=== PATIENT | female | born 1985 | race Caucasian/White ===

== ENCOUNTER 2020-07-13 02:25 | Inpatient (IN) ==
[2020-07-13] MEDS ORDERED: Ondansetron 4 MG/2 ML VIAL IVP PRN (06:17)
[2020-07-13] MEDS ORDERED: Naloxone 0.4 MG/ML INJ IVP PRN (06:17)
[2020-07-13] MEDS ORDERED: Dextrose Gel 15 GM/37.5 ML TUBE PO PRN ×2 (07:27)
[2020-07-13] MEDS ORDERED: *HR* Dextrose 50 % in Water (Vial) 50 ML VIAL IVP PRN (07:27)
[2020-07-13] MEDS ORDERED: D5% in Water 1,000 ML IVC PRN (07:27)
[2020-07-13 07:35] LABS: Basophils % 0.2 %; Eosinophils % 0.1 %; Hemoglobin 14.3 g/dL (11.5-15.4); Immature Granulocytes % 0.7 % (0-4); Lymphocytes # 1.7 K/mcL (0.6-4.6); Lymphocytes % 14.6 %; Mean Corpuscular HGB Conc 29.2 g/dL (31.6-35.5); Mean Corpuscular Volume 92.5 fL (83.0-100.0); Mean Platelet Volume 10.4 fL (9.4-12.4); Monocytes # 0.8 K/mcL (0.0-1.3); Monocytes % 6.8 %; Neutrophils # 8.8 K/mcL (1.6-8.9); Platelet Count 252 K/mcL (140-400); Red Cell Distribution Width 14.5 % (11.5-14.5); Segmented Neutrophils % 77.6 %; White Blood Count 11.3 K/mcL (4.3-11.1)
[2020-07-13 07:37] LABS: INR 1.1; Prothrombin Time 13.2 Seconds (9.4-12.1)
[2020-07-13] MEDS ORDERED: Ipratropium/Albuterol Neb 3 ML ONE (07:44)
[2020-07-13 07:54] LABS: Alanine Aminotransferase 88 Units/L (7-52); Albumin 3.8 g/dL (3.5-5.7); Albumin/Globulin Ratio 1.2 (1.1-2.2); Alkaline Phosphatase 127 Units/L (34-104); Aspartate Amino Transferase 35 Units/L (13-39); BUN/Creatinine Ratio 24 (6-26); Bilirubin,Total 0.4 mg/dL (0.3-1.0); Blood Urea Nitrogen 12 mg/dL (6-20); Calcium 9.5 mg/dL (8.6-10.3); Carbon Dioxide 38 mEq/L (23-29); Chloride 96 mEq/L (98-107); Globulin 3.2 g/dL (2.4-3.5); Glucose 221 mg/dL (70-105); Lactate Dehydrogenase 180 Units/L (140-271); Osmolality,Calculated 295 (280-300); Potassium 4.1 mEq/L (3.5-5.1); Sodium 139 mEq/L (136-145); eGFR For African Americans > 60 (> 60); eGFR For Non-African Americans > 60 (> 60)
[2020-07-13] MEDS: Ipratropium/Albuterol Neb 3 ML IH SCH ×5 (07:56→22:55)
[2020-07-13 08:01] LABS: Troponin I < 0.03 ng/mL (< 0.04)
[2020-07-13 08:19] LABS: Ferritin 50 ng/mL (10-120)
[2020-07-13] MEDS: Insulin LISPRO 300 UNITS/3 ML VIAL SQ SCH ×3 (08:59→17:23)
[2020-07-13] MEDS: levoFLOXacin 750 MG/150 ML 750 MG/150 ML BAG IVPB SCH (09:00)
[2020-07-13] MEDS: Insulin DETEMIR 100 UNIT/ML X5UNITS SQ SCH ×2 (13:17→20:51)
[2020-07-13] MEDS: Ketorolac 15 MG/ML VIAL IVP PRN ×2 (13:20→19:19)
[2020-07-13] MEDS: traZODone 50 MG TABLET PO SCH (20:50)
[2020-07-13] MEDS: *HR* Rivaroxaban 10 MG TABLET PO SCH (20:50)
[2020-07-13] MEDS: Latanoprost 2.5 ML BOTTLE BOTH EYES SCH (20:57)
[2020-07-13] MEDS: OXcarbazepine 150 MG TABLET PO SCH (22:35)
[2020-07-14] MEDS: Ipratropium/Albuterol Neb 3 ML IH SCH ×6 (03:51→23:38)
[2020-07-14] MEDS: Ketorolac 15 MG/ML VIAL IVP PRN ×3 (06:13→20:45)
[2020-07-14] MEDS ORDERED: Insulin DETEMIR 100 UNIT/ML X5UNITS SQ SCH (09:00)
[2020-07-14] MEDS: Insulin LISPRO 300 UNITS/3 ML VIAL SQ SCH ×6 (09:36→17:52)
[2020-07-14] MEDS: Insulin DETEMIR 100 UNIT/ML X5UNITS SQ SCH ×2 (09:43→21:17)
[2020-07-14] MEDS: Loratadine 10 MG TABLET PO SCH (09:44)
[2020-07-14] MEDS: Gabapentin 100 MG CAPSULE PO SCH (09:44)
[2020-07-14] MEDS: levoFLOXacin 750 MG/150 ML 750 MG/150 ML BAG IVPB SCH (09:44)
[2020-07-14] MEDS: Cholecalciferol (D-3) 1,000 UNIT (25MCG) TABLET PO SCH (09:44)
[2020-07-14] MEDS: OXcarbazepine 150 MG TABLET PO SCH ×2 (09:44→20:45)
[2020-07-14 13:42] LABS: Immature Granulocytes % 0.7 % (0-4)
[2020-07-14 13:43] LABS: Basophils # 0.1 K/mcL (0.0-0.2); Basophils % 0.5 %; Eosinophils # 0.2 K/mcL (0.0-0.6); Eosinophils % 1.7 %; Hemoglobin 13.3 g/dL (11.5-15.4); Lymphocytes # 1.5 K/mcL (0.6-4.6); Mean Corpuscular HGB Conc 27.1 g/dL (31.6-35.5); Mean Corpuscular Hemoglobin 26.1 pg (28.0-33.3); Mean Corpuscular Volume 96.3 fL (83.0-100.0); Mean Platelet Volume 10.7 fL (9.4-12.4); Monocytes # 1.1 K/mcL (0.0-1.3); Monocytes % 8.8 %; Platelet Count 258 K/mcL (140-400); Red Blood Count 5.09 M/mcL (3.82-4.97); Red Cell Distribution Width 14.8 % (11.5-14.5); Segmented Neutrophils % 76.3 %; White Blood Count 12.1 K/mcL (4.3-11.1)
[2020-07-14 13:52] LABS: Neutrophils # 9.2 K/mcL (1.6-8.9)
[2020-07-14 14:23] LABS: BUN/Creatinine Ratio 25 (6-26); Blood Urea Nitrogen 16 mg/dL (6-20); Calcium 9.1 mg/dL (8.6-10.3); Carbon Dioxide 41 mEq/L (23-29); Chloride 96 mEq/L (98-107); Glucose 449 mg/dL (70-105); Magnesium 1.7 mg/dL (1.6-2.6); Osmolality,Calculated 311 (280-300); Phosphorous 4.3 mg/dL (2.7-4.5); Potassium 4.5 mEq/L (3.5-5.1); Sodium 140 mEq/L (136-145); Troponin I < 0.03 ng/mL (< 0.04); eGFR For African Americans > 60 (> 60); eGFR For Non-African Americans > 60 (> 60)
[2020-07-14 15:56] LABS: Estimated Average Glucose 315 mg/dl
[2020-07-14 16:07] LABS: Hypochromasia Present (Not Present)
[2020-07-14] MEDS ORDERED: Perflutren Lipid Microsphere 1.3 ML in 0.9 % Sodium Chloride 8.7 ML IVP PRN (17:36)
[2020-07-14] MEDS: MethylPREDNISolone 40 MG/ML VIAL IVP SCH (17:53)
[2020-07-14] MEDS: Albuterol 2.5 MG/3 ML NEBULIZER IH SCH ×2 (19:59→23:38)
[2020-07-14] MEDS: traZODone 50 MG TABLET PO SCH (20:45)
[2020-07-14] MEDS: hydrOXYzine pamoate 25 MG CAPSULE PO PRN (20:45)
[2020-07-14] MEDS: *HR* Rivaroxaban 10 MG TABLET PO SCH (20:45)
[2020-07-14] MEDS: Latanoprost 2.5 ML BOTTLE BOTH EYES SCH (20:50)
[2020-07-15 01:04] LABS: Hematocrit 50.3 % (35.3-44.9); Hemoglobin 14.2 g/dL (11.5-15.4); Mean Corpuscular HGB Conc 28.2 g/dL (31.6-35.5); Mean Corpuscular Hemoglobin 26.2 pg (28.0-33.3); Mean Corpuscular Volume 92.8 fL (83.0-100.0); Mean Platelet Volume 11.1 fL (9.4-12.4); Platelet Count 253 K/mcL (140-400); Red Blood Count 5.42 M/mcL (3.82-4.97); Red Cell Distribution Width 14.5 % (11.5-14.5); White Blood Count 9.7 K/mcL (4.3-11.1)
[2020-07-15] MEDS: Ipratropium/Albuterol Neb 3 ML IH SCH ×5 (03:30→22:08)
[2020-07-15] MEDS: Albuterol 2.5 MG/3 ML NEBULIZER IH SCH ×5 (03:30→22:07)
[2020-07-15] MEDS: Ketorolac 15 MG/ML VIAL IVP PRN ×4 (03:56→23:48)
[2020-07-15] MEDS: hydrOXYzine pamoate 25 MG CAPSULE PO PRN ×2 (03:57→22:09)
[2020-07-15 06:39] LABS: ABG Base Excess 14 mEq/L (-2 to 3); ABG HCO3 47 mEq/L (21-27); ABG Oxygen Saturation 84 % (95-98); ABG PCO2 106 mmHg (35-45); ABG PH 7.26 pH Units (7.32-7.45); ABG PO2 60 mmHg (85-104); ABG TCO2 > 50 mEq/L (20-26)
[2020-07-15] MEDS: OXcarbazepine 150 MG TABLET PO SCH ×2 (08:17→22:11)
[2020-07-15] MEDS: Gabapentin 100 MG CAPSULE PO SCH (08:17)
[2020-07-15] MEDS: Loratadine 10 MG TABLET PO SCH (08:18)
[2020-07-15] MEDS: Insulin DETEMIR 100 UNIT/ML X5UNITS SQ SCH ×2 (08:18→23:28)
[2020-07-15] MEDS: Cholecalciferol (D-3) 1,000 UNIT (25MCG) TABLET PO SCH (08:18)
[2020-07-15] MEDS: Insulin LISPRO 300 UNITS/3 ML VIAL SQ SCH ×6 (08:18→16:39)
[2020-07-15] MEDS ORDERED: Insulin Human Regular 10 UNIT in 0.9 % Sodium Chloride 10 ML IV ONE (08:20)
[2020-07-15] MEDS: Furosemide 40 MG/4 ML VIAL IVP SCH ×2 (10:32→22:11)
[2020-07-15] MEDS: MethylPREDNISolone 40 MG/ML VIAL IVP SCH ×2 (10:33→18:17)
[2020-07-15] MEDS: levoFLOXacin 750 MG/150 ML 750 MG/150 ML BAG IVPB SCH (10:34)
[2020-07-15 11:36] LABS: BUN/Creatinine Ratio 25 (6-26); Blood Urea Nitrogen 14 mg/dL (6-20); Calcium 8.7 mg/dL (8.6-10.3); Carbon Dioxide 45 mEq/L (23-29); Chloride 96 mEq/L (98-107); Glucose 241 mg/dL (70-105); Osmolality,Calculated 304 (280-300); Sodium 143 mEq/L (136-145); eGFR For African Americans > 60 (> 60); eGFR For Non-African Americans > 60 (> 60)
[2020-07-15] MEDS: traZODone 50 MG TABLET PO SCH (22:10)
[2020-07-15] MEDS: *HR* Rivaroxaban 10 MG TABLET PO SCH (22:10)
[2020-07-15] MEDS: Latanoprost 2.5 ML BOTTLE BOTH EYES SCH (22:12)
[2020-07-15] MEDS: Melatonin 3 MG TABLET PO PRN (23:49)
[2020-07-16] MEDS: Ipratropium/Albuterol Neb 3 ML IH SCH ×6 (00:47→19:59)
[2020-07-16] MEDS: Albuterol 2.5 MG/3 ML NEBULIZER IH SCH ×6 (00:49→19:57)
[2020-07-16] MEDS: MethylPREDNISolone 40 MG/ML VIAL IVP SCH (06:02)
[2020-07-16 06:17] LABS: Hematocrit 49.1 % (35.3-44.9); Hemoglobin 14.4 g/dL (11.5-15.4); Mean Corpuscular HGB Conc 29.3 g/dL (31.6-35.5); Mean Corpuscular Hemoglobin 27.1 pg (28.0-33.3); Mean Corpuscular Volume 92.3 fL (83.0-100.0); Mean Platelet Volume 10.6 fL (9.4-12.4); Platelet Count 294 K/mcL (140-400); Red Blood Count 5.32 M/mcL (3.82-4.97); Red Cell Distribution Width 14.4 % (11.5-14.5); White Blood Count 11.7 K/mcL (4.3-11.1)
[2020-07-16 06:43] LABS: BUN/Creatinine Ratio 33 (6-26); Blood Urea Nitrogen 20 mg/dL (6-20); Calcium 9.5 mg/dL (8.6-10.3); Carbon Dioxide > 45 mEq/L (23-29); Chloride 91 mEq/L (98-107); Glucose 292 mg/dL (70-105); Magnesium 1.9 mg/dL (1.6-2.6); Osmolality,Calculated 305 (280-300); Phosphorous 4.9 mg/dL (2.7-4.5); Potassium 3.8 mEq/L (3.5-5.1); Sodium 141 mEq/L (136-145); eGFR For African Americans > 60 (> 60); eGFR For Non-African Americans > 60 (> 60)
[2020-07-16] MEDS ORDERED: Acetaminophen IV 1,000 MG/100 ML INFUS..BTL IVPB ONE (08:06)
[2020-07-16] MEDS: Furosemide 40 MG/4 ML VIAL IVP SCH ×2 (08:31→20:15)
[2020-07-16] MEDS: OXcarbazepine 150 MG TABLET PO SCH ×2 (08:32→20:18)
[2020-07-16] MEDS: Nicotine 14 MG PATCH.TD24 TD SCH (08:32)
[2020-07-16] MEDS: Cholecalciferol (D-3) 1,000 UNIT (25MCG) TABLET PO SCH (08:32)
[2020-07-16] MEDS: Loratadine 10 MG TABLET PO SCH (08:32)
[2020-07-16] MEDS: Gabapentin 100 MG CAPSULE PO SCH (08:32)
[2020-07-16] MEDS: Insulin DETEMIR 100 UNIT/ML X5UNITS SQ SCH ×2 (08:33→20:18)
[2020-07-16] MEDS: levoFLOXacin 750 MG/150 ML 750 MG/150 ML BAG IVPB SCH (08:33)
[2020-07-16] MEDS: Insulin LISPRO 300 UNITS/3 ML VIAL SQ SCH ×6 (08:34→16:52)
[2020-07-16 12:33] LABS: Bilirubin,Urine Negative (Negative); Blood,Urine Negative (Negative); Clarity,Urine Clear (Clear); Color,Urine Light-Yellow (Yellow); Glucose,Urine (UA) 500 mg/dL (Normal); Ketones,Urine Negative (Negative); Leukocyte Esterase,Urine Negative (Negative); Mucus,Urine Few per lpf (None-Few); Nitrite,Urine Negative (Negative); Protein,Urine Negative (Neg-Trace); RBC,Urine 0-3 per hpf (0-3); Specific Gravity,Urine 1.016 (1.010-1.025); Squamous Epithelial Cell,Urine Few per hpf (None-Few); Urobilinogen,Urine Normal (Normal); WBC,Urine 0-3 per hpf (0-3)
[2020-07-16] MEDS: Ketorolac 15 MG/ML VIAL IVP PRN (20:16)
[2020-07-16] MEDS: Melatonin 3 MG TABLET PO PRN (20:17)
[2020-07-16] MEDS: traZODone 50 MG TABLET PO SCH (20:17)
[2020-07-16] MEDS: hydrOXYzine pamoate 25 MG CAPSULE PO PRN (20:17)
[2020-07-16] MEDS: *HR* Rivaroxaban 10 MG TABLET PO SCH (20:17)
[2020-07-16] MEDS: Latanoprost 2.5 ML BOTTLE BOTH EYES SCH (20:19)
[2020-07-17] MEDS: Ipratropium/Albuterol Neb 3 ML IH SCH ×5 (00:08→16:39)
[2020-07-17] MEDS: Albuterol 2.5 MG/3 ML NEBULIZER IH SCH ×5 (00:09→16:59)
[2020-07-17] MEDS: Ketorolac 15 MG/ML VIAL IVP PRN (03:32)
[2020-07-17 06:23] LABS: Basophils % 0.5 %; Hemoglobin 13.9 g/dL (11.5-15.4)
[2020-07-17 06:25] LABS: Basophils # 0.1 K/mcL (0.0-0.2); Eosinophils # 0.2 K/mcL (0.0-0.6); Eosinophils % 2.2 %; Hematocrit 48.2 % (35.3-44.9); Immature Granulocytes % 0.9 % (0-4); Lymphocytes % 29.1 %; Mean Corpuscular HGB Conc 28.8 g/dL (31.6-35.5); Mean Corpuscular Hemoglobin 26.8 pg (28.0-33.3); Mean Corpuscular Volume 93.1 fL (83.0-100.0); Mean Platelet Volume 10.5 fL (9.4-12.4); Monocytes # 0.9 K/mcL (0.0-1.3); Monocytes % 9.2 %; Neutrophils # 5.9 K/mcL (1.6-8.9); Platelet Count 270 K/mcL (140-400); Red Blood Count 5.18 M/mcL (3.82-4.97); Red Cell Distribution Width 14.6 % (11.5-14.5); Segmented Neutrophils % 58.1 %; White Blood Count 10.2 K/mcL (4.3-11.1)
[2020-07-17 06:26] LABS: VBG HCO3 45 mEq/L (21-27); VBG PCO2 96 mmHg (41-51); VBG PH 7.28 pH Units (7.32-7.42); VBG PO2 152 mmHg (25-50)
[2020-07-17 06:58] LABS: Hypochromasia Present (Not Present); Platelet Estimate Normal (Normal)
[2020-07-17] MEDS: Insulin DETEMIR 100 UNIT/ML X5UNITS SQ SCH (08:26)
[2020-07-17] MEDS: Furosemide 40 MG/4 ML VIAL IVP SCH (08:27)
[2020-07-17] MEDS: Insulin LISPRO 300 UNITS/3 ML VIAL SQ SCH ×6 (08:27→16:57)
[2020-07-17] MEDS: Gabapentin 100 MG CAPSULE PO SCH (08:28)
[2020-07-17] MEDS: OXcarbazepine 150 MG TABLET PO SCH (08:28)
[2020-07-17] MEDS: Loratadine 10 MG TABLET PO SCH (08:28)
[2020-07-17] MEDS: Cholecalciferol (D-3) 1,000 UNIT (25MCG) TABLET PO SCH (08:28)
[2020-07-17] MEDS: Nicotine 14 MG PATCH.TD24 TD SCH (08:29)
[2020-07-17] MEDS: levoFLOXacin 750 MG/150 ML 750 MG/150 ML BAG IVPB SCH (08:36)
[2020-07-17 08:55] LABS: Alanine Aminotransferase 80 Units/L (7-52); Albumin 3.3 g/dL (3.5-5.7); Albumin/Globulin Ratio 1.3 (1.1-2.2); Alkaline Phosphatase 130 Units/L (34-104); Aspartate Amino Transferase 18 Units/L (13-39); BUN/Creatinine Ratio 40 (6-26); Bilirubin,Indirect 0.4 mg/dL (0.0-1.0); Bilirubin,Total 0.4 mg/dL (0.3-1.0); Blood Urea Nitrogen 26 mg/dL (6-20); Calcium 8.9 mg/dL (8.6-10.3); Carbon Dioxide 45 mEq/L (23-29); Chloride 94 mEq/L (98-107); Globulin 2.6 g/dL (2.4-3.5); Glucose 251 mg/dL (70-105); Magnesium 1.8 mg/dL (1.6-2.6); Osmolality,Calculated 305 (280-300); Potassium 3.9 mEq/L (3.5-5.1); Sodium 141 mEq/L (136-145); Thyroid Stimulating Hormone 0.949 mcIU/mL (0.340-5.600); Total Protein 5.9 g/dL (6.4-8.9); eGFR For African Americans > 60 (> 60); eGFR For Non-African Americans > 60 (> 60)
[2020-07-17 15:52] VITALS: BP 128/80
[2020-07-17 16:08] LABS: VBG HCO3 43 mEq/L (21-27); VBG PCO2 79 mmHg (41-51); VBG PH 7.34 pH Units (7.32-7.42); VBG PO2 74 mmHg (25-50)
[2020-07-18] MEDS ORDERED: levoFLOXacin 750 MG TABLET PO SCH (09:00)
== END 2020-07-17 17:55 | disposition left against medical advice (07) | DRG 141 ==
LOC: 2NNU → SUATTDRO 05:48 → 3ANU 07-16 12:57
PROVIDERS: ADMIT Family Medicine; ATTEND Pharmacist

== ENCOUNTER 2021-05-29 05:09 | Inpatient (IN) ==
[2021-05-29] MEDS ORDERED: Naloxone 0.4 MG/ML INJ IVP PRN (10:32)
[2021-05-29] MEDS ORDERED: Ondansetron 4 MG/2 ML VIAL IVP PRN (10:32)
[2021-05-29] MEDS ORDERED: Dextrose Gel 15 GM/37.5 ML TUBE PO PRN ×2 (10:34)
[2021-05-29] MEDS ORDERED: D5% in Water 1,000 ML IVC PRN (10:34)
[2021-05-29] MEDS ORDERED: *HR* Dextrose 50 % in Water (Vial) 50 ML VIAL IVP PRN (10:34)
[2021-05-29] MEDS ORDERED: Furosemide 40 MG/4 ML VIAL IVP SCH ×2 (10:45→21:00)
[2021-05-29] MEDS: Insulin LISPRO 300 UNITS/3 ML VIAL SUBQ SCH ×2 (13:01→18:08)
[2021-05-29] MEDS: *HR* OxyCODONE Immed Rel 5 MG TABLET PO PRN ×2 (13:07→21:24)
[2021-05-29] MEDS: Albuterol 2.5 MG/3 ML NEBULIZER IH SCH ×4 (15:05→23:40)
[2021-05-29 15:18] LABS: VBG HCO3 38 mEq/L (21-27); VBG PCO2 79 mmHg (41-51); VBG PH 7.29 pH Units (7.32-7.42); VBG PO2 141 mmHg (25-50)
[2021-05-29] MEDS: Acetaminophen 325 MG TABLET PO PRN (16:22)
[2021-05-29] MEDS ORDERED: polyethylene glycoL 3350 17 GM POWD.PACK PO PRN (17:40)
[2021-05-29] MEDS ORDERED: Haloperidol Lactate 5 MG/ML VIAL IVP ONE (17:50)
[2021-05-29] MEDS: Budesonide/Formoterol 160/4.5 1 PUFF INH IH SCH (19:37)
[2021-05-29] MEDS: Apixaban 5 MG TABLET PO SCH (21:21)
[2021-05-29] MEDS: Nystatin POWDER 30 GM BOTTLE TP SCH (21:21)
[2021-05-29] MEDS: Sucralfate 1 GM TABLET PO SCH (21:21)
[2021-05-29] MEDS: Gabapentin 400 MG CAPSULE PO SCH (21:21)
[2021-05-29] MEDS: Insulin DETEMIR 100 UNIT/ML X5UNITS SUBQ SCH (21:25)
[2021-05-29] MEDS: OXcarbazepine 150 MG TABLET PO SCH (22:40)
[2021-05-30] MEDS: Insulin LISPRO 300 UNITS/3 ML VIAL SUBQ SCH ×4 (00:51→18:43)
[2021-05-30] MEDS: Acetaminophen 325 MG TABLET PO PRN (01:18)
[2021-05-30] MEDS: Dexmedetomidine HCl 400 MCG/100 ML MLS IVC SCH ×9 (02:19→23:43)
[2021-05-30] MEDS: Albuterol 2.5 MG/3 ML NEBULIZER IH SCH ×4 (04:18→12:32)
[2021-05-30 06:55] LABS: Basophils # 0.1 K/mcL (0.0-0.2); Basophils % 0.4 %; Eosinophils # 0.1 K/mcL (0.0-0.6); Eosinophils % 0.5 %; Hematocrit 50.5 % (35.3-44.9); Hemoglobin 14.9 g/dL (11.5-15.4); Immature Granulocytes % 1.2 % (0-4); Lymphocytes % 8.6 %; Mean Corpuscular HGB Conc 29.5 g/dL (31.6-35.5); Mean Corpuscular Hemoglobin 29.1 pg (28.0-33.3); Mean Corpuscular Volume 98.6 fL (83.0-100.0); Mean Platelet Volume 9.9 fL (9.4-12.4); Monocytes # 1.1 K/mcL (0.0-1.3); Monocytes % 9.9 %; Platelet Count 274 K/mcL (140-400); Red Blood Count 5.12 M/mcL (3.82-4.97); Red Cell Distribution Width 14.7 % (11.5-14.5); Segmented Neutrophils % 79.4 %; White Blood Count 11.4 K/mcL (4.3-11.1)
[2021-05-30 07:02] LABS: VBG HCO3 40 mEq/L (21-27); VBG PCO2 77 mmHg (41-51); VBG PH 7.32 pH Units (7.32-7.42); VBG PO2 117 mmHg (25-50)
[2021-05-30 07:14] LABS: BUN/Creatinine Ratio 20 (6-26); Blood Urea Nitrogen 24 mg/dL (6-20); Carbon Dioxide 40 mEq/L (23-29); Chloride 95 mEq/L (98-107); Glucose 151 mg/dL (70-105); Magnesium 2.2 mg/dL (1.6-2.6); Osmolality,Calculated 293 (280-300); Phosphorous 3.8 mg/dL (2.7-4.5); Potassium 5.1 mEq/L (3.5-5.1); Sodium 138 mEq/L (136-145); eGFR For African Americans > 60 (> 60); eGFR For Non-African Americans 52 (> 60)
[2021-05-30] MEDS: Budesonide/Formoterol 160/4.5 1 PUFF INH IH SCH ×2 (07:56→21:10)
[2021-05-30] MEDS: Insulin DETEMIR 100 UNIT/ML X5UNITS SUBQ SCH (08:27)
[2021-05-30] MEDS: Sucralfate 1 GM TABLET PO SCH ×4 (08:46→20:33)
[2021-05-30] MEDS: OXcarbazepine 150 MG TABLET PO SCH ×2 (08:46→20:33)
[2021-05-30] MEDS: Gabapentin 400 MG CAPSULE PO SCH ×3 (08:47→20:33)
[2021-05-30] MEDS: Apixaban 5 MG TABLET PO SCH (08:47)
[2021-05-30] MEDS: Nystatin POWDER 30 GM BOTTLE TP SCH ×2 (08:47→20:35)
[2021-05-30] MEDS ORDERED: Furosemide 40 MG/4 ML VIAL IVP SCH (09:00)
[2021-05-30] MEDS ORDERED: Metoprolol XL (24 HR) Succ 25 MG TAB.ER.24H PO SCH (09:00)
[2021-05-30] MEDS ORDERED: levoFLOXacin 500 MG/100 ML 500 MG/100 ML BAG IVPB SCH (09:00)
[2021-05-30] MEDS ORDERED: Isovue-370 500 ML BOTTLE IVP ONE (09:02)
[2021-05-30 13:04] LABS: Adenovirus Not Detected (Not Detect); Bordetella Pertussis Not Detected (Not Detect); Chlamydophila pneumoniae Not Detected (Not Detect); Coronavirus 229E Not Detected (Not Detect); Coronavirus HKU1 Not Detected (Not Detect); Coronavirus NL63 Not Detected (Not Detect); Coronavirus OC43 Not Detected (Not Detect); Human Metapneumovirus Not Detected (Not Detect); Human Rhinovirus/Enterovirus DETECTED (Not Detect); Influenza A Subtype 2009 H1 Not Detected (Not Detect); Influenza B Not Detected (Not Detect); Mycoplasma pneumoniae Not Detected (Not Detect); Parainfluenza Virus 1 Not Detected (Not Detect); Parainfluenza Virus 2 Not Detected (Not Detect); Parainfluenza Virus 3 Not Detected (Not Detect); Parainfluenza Virus 4 Not Detected (Not Detect); Respiratory Syncytial Virus Not Detected (Not Detect); SARS-CoV-2 Not Detected (Not Detect)
[2021-05-30] MEDS: *HR* OxyCODONE Immed Rel 5 MG TABLET PO PRN (15:35)
[2021-05-30] MEDS ORDERED: Ipratropium/Albuterol Neb 3 ML IH SCH (16:00)
[2021-05-30] MEDS ORDERED: Haloperidol Lactate 5 MG/ML VIAL IVP ONE ×3 (16:15→16:17)
[2021-05-30] MEDS ORDERED: Naloxone 0.4 MG/ML INJ IVP PRN (19:28)
[2021-05-30] MEDS ORDERED: polyethylene glycoL 3350 17 GM POWD.PACK PO PRN (19:28)
[2021-05-30] MEDS ORDERED: Ondansetron 4 MG/2 ML VIAL IVP PRN (19:28)
[2021-05-30] MEDS ORDERED: *HR* OxyCODONE Immed Rel 5 MG TABLET PO PRN (19:28)
[2021-05-30] MEDS ORDERED: Dextrose Gel 15 GM/37.5 ML TUBE PO PRN ×2 (19:28)
[2021-05-30] MEDS ORDERED: Acetaminophen 325 MG TABLET PO PRN (19:28)
[2021-05-30] MEDS ORDERED: *HR* Dextrose 50 % in Water (Vial) 50 ML VIAL IVP PRN (19:28)
[2021-05-30] MEDS ORDERED: D5% in Water 1,000 ML IVC PRN (19:28)
[2021-05-30 20:09] LABS: ABG Base Excess 9 mEq/L (-2 to 3); ABG HCO3 42 mEq/L (21-27); ABG Oxygen Saturation 92 % (95-98); ABG PCO2 97 mmHg (35-45); ABG PH 7.25 pH Units (7.32-7.45); ABG PO2 78 mmHg (85-104); ABG TCO2 45 mEq/L (20-26); Blood Gas Modality avaps; Blood Gas VT 500 cc
[2021-05-30] MEDS ORDERED: Apixaban 5 MG TABLET PO SCH (21:00)
[2021-05-30] MEDS ORDERED: Insulin DETEMIR 100 UNIT/ML X5UNITS SUBQ SCH ×2 (21:00)
[2021-05-30] MEDS: Ipratropium/Albuterol Neb 3 ML IH SCH (21:09)
[2021-05-30 21:32] LABS: ABG Base Excess 9 mEq/L (-2 to 3); ABG HCO3 42 mEq/L (21-27); ABG Oxygen Saturation 88 % (95-98); ABG PCO2 94 mmHg (35-45); ABG PH 7.25 pH Units (7.32-7.45); ABG PO2 68 mmHg (85-104); ABG TCO2 45 mEq/L (20-26); Blood Gas Modality avaps; Blood Gas VT 500 cc
[2021-05-30] MEDS ORDERED: Artificial Tears SOLN 15 ML BOTTLE BOTH EYES PRN (21:36)
[2021-05-30] MEDS: Artificial Tears SOLN 15 ML BOTTLE BOTH EYES SCH (23:19)
[2021-05-31] MEDS: FentaNYL (PF) 1,000 MCG/100 ML IV.SOLN IVC SCH ×4 (00:03→21:18)
[2021-05-31] MEDS: Dexmedetomidine HCl 400 MCG/100 ML MLS IVC SCH ×3 (00:26→04:55)
[2021-05-31 01:18] LABS: Hematocrit 51.3 % (35.3-44.9); Mean Corpuscular HGB Conc 29.2 g/dL (31.6-35.5); Mean Corpuscular Hemoglobin 28.4 pg (28.0-33.3); Mean Corpuscular Volume 97.2 fL (83.0-100.0); Mean Platelet Volume 10.4 fL (9.4-12.4); Platelet Count 299 K/mcL (140-400); Red Blood Count 5.28 M/mcL (3.82-4.97); Red Cell Distribution Width 14.6 % (11.5-14.5); White Blood Count 12.2 K/mcL (4.3-11.1)
[2021-05-31] MEDS ORDERED: *HR* Heparin 5,000 UNIT/ML VIAL IVP PRN (01:56)
[2021-05-31] MEDS ORDERED: *HR* Heparin 5,000 UNIT/ML VIAL IVP ONE (01:56)
[2021-05-31] MEDS ORDERED: Heparin 25,000UNIT/250ML 1/2NS 25,000 UNIT/250 ML IV.SOLN IVC SCH (02:00)
[2021-05-31] MEDS: Heparin 25,000UNIT/250ML 1/2NS 25,000 UNIT/250 ML IV.SOLN IVC SCH ×2 (02:30→13:20)
[2021-05-31] MEDS: Ipratropium/Albuterol Neb 3 ML IH SCH ×4 (02:39→21:24)
[2021-05-31 02:47] LABS: ABG Base Excess 8 mEq/L (-2 to 3); ABG HCO3 39 mEq/L (21-27); ABG Oxygen Saturation 86 % (95-98); ABG PCO2 78 mmHg (35-45); ABG PH 7.31 pH Units (7.32-7.45); ABG PO2 59 mmHg (85-104); ABG TCO2 41 mEq/L (20-26); Blood Gas VT 380 cc
[2021-05-31 03:03] LABS: Calcium 9.3 mg/dL (8.6-10.3)
[2021-05-31] MEDS ORDERED: Insulin Human Regular 10 UNIT in 0.9 % Sodium Chloride 10 ML IV ONE (03:31)
[2021-05-31] MEDS ORDERED: Furosemide 40 MG/4 ML VIAL IVP ONE (03:35)
[2021-05-31] MEDS: Artificial Tears SOLN 15 ML BOTTLE BOTH EYES SCH ×6 (03:42→23:31)
[2021-05-31] MEDS ORDERED: *HR* Dextrose 50 % in Water (Vial) 50 ML VIAL IVP ONE (04:15)
[2021-05-31] MEDS: Calcium Gluconate 1gm/50mL 1 GM/50 ML BAG IVPB SCH ×2 (04:32→05:03)
[2021-05-31] MEDS: Insulin LISPRO 300 UNITS/3 ML VIAL SUBQ SCH ×6 (04:32→23:32)
[2021-05-31 05:39] LABS: ABG Base Excess 7 mEq/L (-2 to 3); ABG HCO3 34 mEq/L (21-27); ABG Oxygen Saturation 85 % (95-98); ABG PCO2 54 mmHg (35-45); ABG PH 7.41 pH Units (7.32-7.45); ABG PO2 50 mmHg (85-104); ABG TCO2 36 mEq/L (20-26); Blood Gas Modality ASSIST CONTROL; Blood Gas VT 380 cc
[2021-05-31] MEDS ORDERED: SODIUM ZIRCONIUM CYCLOSILICATE 5 GM POWD.PACK PO SCH (06:56)
[2021-05-31] MEDS ORDERED: Insulin LISPRO 300 UNITS/3 ML VIAL SUBQ SCH ×3 (07:30→21:00)
[2021-05-31] MEDS: Chlorhexidine Rinse 15 ML MOUTHWASH MM SCH ×2 (08:14→19:34)
[2021-05-31] MEDS: Gabapentin 400 MG CAPSULE PO SCH ×2 (08:14→14:12)
[2021-05-31] MEDS: Pantoprazole 40 MG VIAL IVP SCH (08:14)
[2021-05-31] MEDS: Sucralfate 1 GM TABLET PO SCH ×4 (08:19→21:54)
[2021-05-31] MEDS ORDERED: Furosemide 40 MG/4 ML VIAL IVP SCH (09:00)
[2021-05-31] MEDS ORDERED: Metoprolol XL (24 HR) Succ 25 MG TAB.ER.24H PO SCH (09:00)
[2021-05-31] MEDS: Budesonide/Formoterol 160/4.5 1 PUFF INH IH SCH ×2 (09:14→21:25)
[2021-05-31] MEDS: levoFLOXacin 500 MG/100 ML 500 MG/100 ML BAG IVPB SCH (09:45)
[2021-05-31] MEDS: OXcarbazepine 150 MG TABLET PO SCH ×2 (10:29→19:31)
[2021-05-31] MEDS: Nystatin POWDER 30 GM BOTTLE TP SCH ×2 (10:37→19:31)
[2021-05-31 10:57] LABS: Calcium 7.2 mg/dL (8.6-10.3); Potassium 3.6 mEq/L (3.5-5.1)
[2021-05-31] MEDS ORDERED: *HR* Propofol 200 MG/20 ML VIAL IVP ONE (11:33)
[2021-05-31] MEDS ORDERED: *HR* Etomidate 20 MG/10 ML AMPUL IVP ONE (11:33)
[2021-05-31] MEDS ORDERED: *HR* Succinylcholine 200 MG/10 ML VIAL IVP ONE (11:33)
[2021-06-01] MEDS: Heparin 25,000UNIT/250ML 1/2NS 25,000 UNIT/250 ML IV.SOLN IVC SCH ×3 (00:43→23:24)
[2021-06-01] MEDS: Ipratropium/Albuterol Neb 3 ML IH SCH ×4 (03:10→22:51)
[2021-06-01] MEDS: Insulin LISPRO 300 UNITS/3 ML VIAL SUBQ SCH ×6 (03:40→23:31)
[2021-06-01] MEDS: Artificial Tears SOLN 15 ML BOTTLE BOTH EYES SCH ×6 (03:40→23:26)
[2021-06-01] MEDS: FentaNYL (PF) 1,000 MCG/100 ML IV.SOLN IVC SCH ×4 (03:53→20:16)
[2021-06-01 04:07] LABS: Hematocrit 50.3 % (35.3-44.9); Hemoglobin 14.8 g/dL (11.5-15.4); Mean Corpuscular HGB Conc 29.4 g/dL (31.6-35.5); Mean Corpuscular Hemoglobin 27.8 pg (28.0-33.3); Mean Corpuscular Volume 94.5 fL (83.0-100.0); Mean Platelet Volume 9.5 fL (9.4-12.4); Platelet Count 296 K/mcL (140-400); Red Blood Count 5.32 M/mcL (3.82-4.97); Red Cell Distribution Width 14.9 % (11.5-14.5); White Blood Count 11.9 K/mcL (4.3-11.1)
[2021-06-01 04:33] LABS: ABG Base Excess 10 mEq/L (-2 to 3); ABG HCO3 41 mEq/L (21-27); ABG Oxygen Saturation 90 % (95-98); ABG PCO2 87 mmHg (35-45); ABG PH 7.28 pH Units (7.32-7.45); ABG PO2 70 mmHg (85-104); ABG TCO2 44 mEq/L (20-26); Blood Gas Modality AF; Blood Gas VT 400 cc
[2021-06-01 05:06] LABS: Calcium 9.3 mg/dL (8.6-10.3); Potassium 4.5 mEq/L (3.5-5.1)
[2021-06-01] MEDS: OXcarbazepine 150 MG TABLET PO SCH ×2 (08:06→20:35)
[2021-06-01] MEDS: Chlorhexidine Rinse 15 ML MOUTHWASH MM SCH ×2 (08:06→20:15)
[2021-06-01] MEDS: Pantoprazole 40 MG VIAL IVP SCH (08:06)
[2021-06-01] MEDS: Sucralfate 1 GM TABLET PO SCH ×4 (08:06→23:08)
[2021-06-01] MEDS: Nystatin POWDER 30 GM BOTTLE TP SCH ×2 (08:07→20:20)
[2021-06-01] MEDS: levoFLOXacin 500 MG/100 ML 500 MG/100 ML BAG IVPB SCH (08:07)
[2021-06-01] MEDS: *HR* Heparin 5,000 UNIT/ML VIAL IVP PRN (08:13)
[2021-06-01] MEDS: methylPREDNISolone 125 MG/2 ML VIAL IVP SCH ×3 (08:17→23:47)
[2021-06-01] MEDS: Budesonide/Formoterol 160/4.5 1 PUFF INH IH SCH ×2 (10:20→22:51)
[2021-06-01 13:06] LABS: Amorphous Sediment,Urine Few per hpf (None-Few); Bacteria,Urine Few per hpf (None-Few); Bilirubin,Urine Negative (Negative); Blood,Urine Negative (Negative); Clarity,Urine Turbid (Clear); Color,Urine Light-Yellow (Yellow); Glucose,Urine (UA) Normal (Normal); Granular Casts,Urine Few per lpf (None Seen); Hyaline Casts,Urine Few per lpf (None Seen); Ketones,Urine Negative (Negative); Leukocyte Esterase,Urine Negative (Negative); Mucus,Urine Few per lpf (None-Few); Nitrite,Urine Negative (Negative); PH,Urine 5.5 pH Units (5.0-8.0); Protein,Urine 30 mg/dL (Neg-Trace); RBC,Urine 0-3 per hpf (0-3); Specific Gravity,Urine 1.021 (1.010-1.025); Squamous Epithelial Cell,Urine Few per hpf (None-Few); Uric Acid Crystals,Urine Present per hpf; Urobilinogen,Urine Normal (Normal)
[2021-06-01 15:48] LABS: INR 1.1; Prothrombin Time 13.2 Seconds (9.4-12.1)
[2021-06-01 16:24] LABS: Magnesium 2.3 mg/dL (1.6-2.6); Phosphorous 4.7 mg/dL (2.7-4.5)
[2021-06-01 16:40] LABS: VBG Ionized Calcium 0.99 mmol/L (1.15-1.35)
[2021-06-01] MEDS ORDERED: *HR* Metoprolol 5 MG/5 ML VIAL IVP ONE (17:21)
[2021-06-01] MEDS: Cefepime HCl 1,000 MG in Water for inj. (sterile) 10 ML IVP SCH (23:10)
[2021-06-01] MEDS: Dexmedetomidine HCl 400 MCG/100 ML MLS IVC SCH (23:58)
[2021-06-02] MEDS: FentaNYL (PF) 2,500 MCG/50 ML IV.SOLN IVC SCH ×3 (02:08→19:40)
[2021-06-02] MEDS: Ipratropium/Albuterol Neb 3 ML IH SCH ×4 (03:18→21:03)
[2021-06-02] MEDS: Artificial Tears SOLN 15 ML BOTTLE BOTH EYES SCH ×6 (04:06→23:00)
[2021-06-02] MEDS: Insulin LISPRO 300 UNITS/3 ML VIAL SUBQ SCH ×6 (04:08→23:12)
[2021-06-02 04:31] LABS: Hematocrit 46.5 % (35.3-44.9); Mean Corpuscular HGB Conc 30.1 g/dL (31.6-35.5); Mean Corpuscular Hemoglobin 28.5 pg (28.0-33.3); Mean Corpuscular Volume 94.7 fL (83.0-100.0); Mean Platelet Volume 10.4 fL (9.4-12.4); Platelet Count 288 K/mcL (140-400); Red Blood Count 4.91 M/mcL (3.82-4.97); Red Cell Distribution Width 14.6 % (11.5-14.5); White Blood Count 12.1 K/mcL (4.3-11.1)
[2021-06-02 04:35] LABS: Calcium 9.3 mg/dL (8.6-10.3); Magnesium 2.6 mg/dL (1.6-2.6); Phosphorous 4.1 mg/dL (2.7-4.5); Potassium 4.8 mEq/L (3.5-5.1)
[2021-06-02 04:59] LABS: ABG Base Excess 9 mEq/L (-2 to 3); ABG HCO3 39 mEq/L (21-27); ABG Oxygen Saturation 91 % (95-98); ABG PCO2 75 mmHg (35-45); ABG PH 7.33 pH Units (7.32-7.45); ABG PO2 69 mmHg (85-104); ABG TCO2 42 mEq/L (20-26); Blood Gas Modality AF; Blood Gas VT 400 cc
[2021-06-02] MEDS: Doxycycline 100 MG in 0.9 % Sodium Chloride Mini Bag 100 ML IVPB SCH ×2 (05:42→17:36)
[2021-06-02] MEDS: Chlorhexidine Rinse 15 ML MOUTHWASH MM SCH ×2 (07:36→20:01)
[2021-06-02] MEDS: OXcarbazepine 150 MG TABLET PO SCH ×2 (07:36→20:04)
[2021-06-02] MEDS: levoFLOXacin 500 MG/100 ML 500 MG/100 ML BAG IVPB SCH (07:36)
[2021-06-02] MEDS: Pantoprazole 40 MG VIAL IVP SCH (07:37)
[2021-06-02] MEDS: Cefepime HCl 1,000 MG in Water for inj. (sterile) 10 ML IVP SCH (07:37)
[2021-06-02] MEDS: Sucralfate 1 GM TABLET PO SCH ×4 (07:37→20:05)
[2021-06-02] MEDS: methylPREDNISolone 125 MG/2 ML VIAL IVP SCH ×3 (07:38→23:01)
[2021-06-02] MEDS: Nystatin POWDER 30 GM BOTTLE TP SCH ×2 (07:39→20:03)
[2021-06-02] MEDS: Budesonide/Formoterol 160/4.5 1 PUFF INH IH SCH ×2 (10:08→21:03)
[2021-06-02] MEDS: Dexmedetomidine HCl 400 MCG/100 ML MLS IVC SCH ×2 (10:28→17:44)
[2021-06-02] MEDS: Heparin 25,000UNIT/250ML 1/2NS 25,000 UNIT/250 ML IV.SOLN IVC SCH (11:18)
[2021-06-02] MEDS ORDERED: valACYclovir 500 MG TABLET GTUBE ONE (11:45)
[2021-06-02] MEDS: Cefepime HCl 2,000 MG in Water for inj. (sterile) 20 ML IVP SCH ×2 (11:47→20:00)
[2021-06-02] MEDS ORDERED: Vancomycin 2,000 MG/520 ML IV.SOLN IVPB ONE (12:09)
[2021-06-02 15:22] LABS: Sodium, Urine 31.4 mEq/L
[2021-06-02] MEDS: valACYclovir 500 MG TABLET GTUBE SCH (20:05)
[2021-06-03] MEDS ORDERED: Vancomycin 1,500 MG/265 ML IV.SOLN IVPB SCH (01:00)
[2021-06-03] MEDS: Heparin 25,000UNIT/250ML 1/2NS 25,000 UNIT/250 ML IV.SOLN IVC SCH ×3 (01:40→23:18)
[2021-06-03] MEDS: Dexmedetomidine HCl 400 MCG/100 ML MLS IVC SCH ×3 (01:42→17:32)
[2021-06-03] MEDS: Artificial Tears SOLN 15 ML BOTTLE BOTH EYES SCH ×6 (03:37→23:52)
[2021-06-03] MEDS: Cefepime HCl 2,000 MG in Water for inj. (sterile) 20 ML IVP SCH ×3 (03:38→20:06)
[2021-06-03] MEDS: Insulin LISPRO 300 UNITS/3 ML VIAL SUBQ SCH ×6 (03:38→23:52)
[2021-06-03] MEDS: Ipratropium/Albuterol Neb 3 ML IH SCH ×4 (03:46→21:08)
[2021-06-03 03:50] LABS: Basophils % 0.1 %; Hematocrit 47.3 % (35.3-44.9); Hemoglobin 14.2 g/dL (11.5-15.4); Immature Granulocytes % 0.7 % (0-4); Lymphocytes # 0.5 K/mcL (0.6-4.6); Lymphocytes % 3.3 %; Mean Corpuscular Hemoglobin 28.7 pg (28.0-33.3); Mean Corpuscular Volume 95.6 fL (83.0-100.0); Mean Platelet Volume 10.1 fL (9.4-12.4); Monocytes # 1.1 K/mcL (0.0-1.3); Monocytes % 7.5 %; Platelet Count 291 K/mcL (140-400); Red Blood Count 4.95 M/mcL (3.82-4.97); Red Cell Distribution Width 14.6 % (11.5-14.5); Segmented Neutrophils % 88.4 %; White Blood Count 14.8 K/mcL (4.3-11.1)
[2021-06-03 03:57] LABS: VBG Ionized Calcium 1.21 mmol/L (1.15-1.35)
[2021-06-03 04:06] LABS: Alanine Aminotransferase 11 Units/L (7-52); Albumin 3.5 g/dL (3.5-5.7); Albumin/Globulin Ratio 0.9 (1.1-2.2); Aspartate Amino Transferase 8 Units/L (13-39); BUN/Creatinine Ratio 44 (6-26); Bilirubin,Total 0.4 mg/dL (0.3-1.0); Blood Urea Nitrogen 51 mg/dL (6-20); Calcium 9.6 mg/dL (8.6-10.3); Carbon Dioxide 33 mEq/L (23-29); Chloride 94 mEq/L (98-107); Globulin 3.9 g/dL (2.4-3.5); Glucose 276 mg/dL (70-105); Magnesium 2.5 mg/dL (1.6-2.6); Osmolality,Calculated 310 (280-300); Phosphorous 4.3 mg/dL (2.7-4.5); Potassium 5.3 mEq/L (3.5-5.1); Sodium 138 mEq/L (136-145); Total Protein 7.4 g/dL (6.4-8.9); eGFR For African Americans > 60 (> 60); eGFR For Non-African Americans 54 (> 60)
[2021-06-03 04:42] LABS: ABG Base Excess 9 mEq/L (-2 to 3); ABG HCO3 39 mEq/L (21-27); ABG Oxygen Saturation 89 % (95-98); ABG PCO2 76 mmHg (35-45); ABG PH 7.32 pH Units (7.32-7.45); ABG PO2 65 mmHg (85-104); ABG TCO2 41 mEq/L (20-26); Blood Gas VT 400 cc
[2021-06-03 04:51] LABS: Alkaline Phosphatase 85 Units/L (34-104)
[2021-06-03] MEDS: Doxycycline 100 MG in 0.9 % Sodium Chloride Mini Bag 100 ML IVPB SCH ×2 (05:42→17:02)
[2021-06-03] MEDS: methylPREDNISolone 125 MG/2 ML VIAL IVP SCH ×3 (07:24→23:52)
[2021-06-03] MEDS: valACYclovir 500 MG TABLET GTUBE SCH ×2 (07:24→20:09)
[2021-06-03] MEDS: Pantoprazole 40 MG VIAL IVP SCH (07:25)
[2021-06-03] MEDS: Sucralfate 1 GM TABLET PO SCH ×4 (07:25→20:09)
[2021-06-03] MEDS: OXcarbazepine 150 MG TABLET PO SCH ×2 (07:25→20:08)
[2021-06-03] MEDS: Chlorhexidine Rinse 15 ML MOUTHWASH MM SCH ×2 (07:25→20:07)
[2021-06-03] MEDS: Nystatin POWDER 30 GM BOTTLE TP SCH ×2 (07:26→20:08)
[2021-06-03] MEDS: FentaNYL (PF) 2,500 MCG/50 ML IV.SOLN IVC SCH ×2 (07:58→22:05)
[2021-06-03] MEDS: *HR* Heparin 5,000 UNIT/ML VIAL IVP PRN (08:11)
[2021-06-03] MEDS: Budesonide/Formoterol 160/4.5 1 PUFF INH IH SCH ×2 (09:56→21:08)
[2021-06-03] MEDS ORDERED: Vancomycin 2,000 MG/520 ML IV.SOLN IVPB SCH (13:00)
[2021-06-03] MEDS: Furosemide 40 MG/4 ML VIAL IVP SCH (20:08)
[2021-06-04] MEDS: Dexmedetomidine HCl 400 MCG/100 ML MLS IVC SCH ×4 (00:32→18:10)
[2021-06-04] MEDS: Artificial Tears SOLN 15 ML BOTTLE BOTH EYES SCH ×6 (03:24→23:41)
[2021-06-04] MEDS: Cefepime HCl 2,000 MG in Water for inj. (sterile) 20 ML IVP SCH ×3 (03:24→19:53)
[2021-06-04 03:43] LABS: Basophils % 0.2 %; Hematocrit 49.2 % (35.3-44.9); Hemoglobin 14.7 g/dL (11.5-15.4); Immature Granulocytes % 1.2 % (0-4); Lymphocytes # 0.6 K/mcL (0.6-4.6); Lymphocytes % 4.4 %; Mean Corpuscular HGB Conc 29.9 g/dL (31.6-35.5); Mean Corpuscular Hemoglobin 28.4 pg (28.0-33.3); Mean Corpuscular Volume 95.2 fL (83.0-100.0); Mean Platelet Volume 10.5 fL (9.4-12.4); Monocytes % 7.3 %; Neutrophils # 12.4 K/mcL (1.6-8.9); Platelet Count 300 K/mcL (140-400); Red Blood Count 5.17 M/mcL (3.82-4.97); Red Cell Distribution Width 14.6 % (11.5-14.5); Segmented Neutrophils % 86.9 %; White Blood Count 14.3 K/mcL (4.3-11.1)
[2021-06-04] MEDS: Insulin LISPRO 300 UNITS/3 ML VIAL SUBQ SCH ×6 (03:45→23:45)
[2021-06-04] MEDS: Ipratropium/Albuterol Neb 3 ML IH SCH ×4 (03:46→21:06)
[2021-06-04 04:04] LABS: BUN/Creatinine Ratio 47 (6-26); Blood Urea Nitrogen 44 mg/dL (6-20); Calcium 10.1 mg/dL (8.6-10.3); Carbon Dioxide 36 mEq/L (23-29); Chloride 95 mEq/L (98-107); Glucose 248 mg/dL (70-105); Magnesium 2.2 mg/dL (1.6-2.6); Osmolality,Calculated 307 (280-300); Phosphorous 3.7 mg/dL (2.7-4.5); Sodium 139 mEq/L (136-145); eGFR For African Americans > 60 (> 60); eGFR For Non-African Americans > 60 (> 60)
[2021-06-04 04:27] LABS: ABG Base Excess 10 mEq/L (-2 to 3); ABG HCO3 39 mEq/L (21-27); ABG Oxygen Saturation 89 % (95-98); ABG PCO2 67 mmHg (35-45); ABG PH 7.37 pH Units (7.32-7.45); ABG PO2 62 mmHg (85-104); ABG TCO2 41 mEq/L (20-26); Blood Gas VT 400 cc
[2021-06-04] MEDS: Doxycycline 100 MG in 0.9 % Sodium Chloride Mini Bag 100 ML IVPB SCH ×2 (05:30→18:30)
[2021-06-04] MEDS: FentaNYL (PF) 2,500 MCG/50 ML IV.SOLN IVC SCH ×2 (05:57→18:32)
[2021-06-04] MEDS: Sucralfate 1 GM TABLET PO SCH ×4 (07:53→20:22)
[2021-06-04] MEDS: Heparin 25,000UNIT/250ML 1/2NS 25,000 UNIT/250 ML IV.SOLN IVC SCH ×2 (07:53→16:42)
[2021-06-04] MEDS: Pantoprazole 40 MG VIAL IVP SCH (07:54)
[2021-06-04] MEDS: Furosemide 40 MG/4 ML VIAL IVP SCH ×2 (07:55→20:15)
[2021-06-04] MEDS: valACYclovir 500 MG TABLET GTUBE SCH ×2 (07:55→19:58)
[2021-06-04] MEDS: Chlorhexidine Rinse 15 ML MOUTHWASH MM SCH ×2 (07:55→19:58)
[2021-06-04] MEDS: OXcarbazepine 150 MG TABLET PO SCH ×2 (07:55→19:57)
[2021-06-04] MEDS: methylPREDNISolone 125 MG/2 ML VIAL IVP SCH ×3 (07:56→23:41)
[2021-06-04] MEDS ORDERED: Insulin DETEMIR 100 UNIT/ML X5UNITS SUBQ ONE (12:30)
[2021-06-04] MEDS ORDERED: *HR* Dextrose 50 % in Water (Syg) 50 ML SYRINGE IVP PRN (12:30)
[2021-06-04] MEDS: Budesonide/Formoterol 160/4.5 1 PUFF INH IH SCH ×2 (13:00→21:06)
[2021-06-04] MEDS: Nystatin POWDER 30 GM BOTTLE TP SCH ×2 (13:18→20:00)
[2021-06-04] MEDS: Insulin DETEMIR 100 UNIT/ML X5UNITS SUBQ SCH (19:59)
[2021-06-05] MEDS: Dexmedetomidine HCl 400 MCG/100 ML MLS IVC SCH ×4 (01:01→20:20)
[2021-06-05] MEDS: Heparin 25,000UNIT/250ML 1/2NS 25,000 UNIT/250 ML IV.SOLN IVC SCH ×3 (02:35→20:20)
[2021-06-05] MEDS: Insulin LISPRO 300 UNITS/3 ML VIAL SUBQ SCH ×6 (03:42→23:35)
[2021-06-05] MEDS: Artificial Tears SOLN 15 ML BOTTLE BOTH EYES SCH ×6 (03:42→23:35)
[2021-06-05] MEDS: Cefepime HCl 2,000 MG in Water for inj. (sterile) 20 ML IVP SCH ×3 (03:43→20:22)
[2021-06-05 03:58] LABS: Basophils # 0.1 K/mcL (0.0-0.2); Basophils % 0.7 %; Hematocrit 52.1 % (35.3-44.9); Hemoglobin 15.1 g/dL (11.5-15.4); Immature Granulocytes % 2.5 % (0-4); Lymphocytes # 0.8 K/mcL (0.6-4.6); Lymphocytes % 5.5 %; Mean Corpuscular Volume 96.5 fL (83.0-100.0); Mean Platelet Volume 10.7 fL (9.4-12.4); Monocytes # 0.8 K/mcL (0.0-1.3); Monocytes % 5.5 %; Neutrophils # 12.1 K/mcL (1.6-8.9); Platelet Count 312 K/mcL (140-400); Red Cell Distribution Width 14.8 % (11.5-14.5); Segmented Neutrophils % 85.8 %; White Blood Count 14.1 K/mcL (4.3-11.1)
[2021-06-05] MEDS: Ipratropium/Albuterol Neb 3 ML IH SCH ×4 (04:00→21:51)
[2021-06-05 04:09] LABS: ABG Base Excess 11 mEq/L (-2 to 3); ABG HCO3 41 mEq/L (21-27); ABG Oxygen Saturation 88 % (95-98); ABG PCO2 69 mmHg (35-45); ABG PH 7.38 pH Units (7.32-7.45); ABG PO2 60 mmHg (85-104); ABG TCO2 43 mEq/L (20-26); Blood Gas VT 400 cc
[2021-06-05 04:11] LABS: BUN/Creatinine Ratio 51 (6-26); Blood Urea Nitrogen 48 mg/dL (6-20); Calcium 10.2 mg/dL (8.6-10.3); Carbon Dioxide 37 mEq/L (23-29); Chloride 93 mEq/L (98-107); Glucose 284 mg/dL (70-105); Osmolality,Calculated 307 (280-300); Phosphorous 4.4 mg/dL (2.7-4.5); Potassium 5.1 mEq/L (3.5-5.1); Sodium 137 mEq/L (136-145); eGFR For African Americans > 60 (> 60); eGFR For Non-African Americans > 60 (> 60)
[2021-06-05] MEDS: FentaNYL (PF) 2,500 MCG/50 ML IV.SOLN IVC SCH ×2 (04:46→17:10)
[2021-06-05] MEDS: Doxycycline 100 MG in 0.9 % Sodium Chloride Mini Bag 100 ML IVPB SCH ×2 (05:31→17:09)
[2021-06-05] MEDS: Sucralfate 1 GM TABLET PO SCH ×4 (07:53→20:25)
[2021-06-05] MEDS: methylPREDNISolone 125 MG/2 ML VIAL IVP SCH ×3 (07:55→23:34)
[2021-06-05] MEDS: Chlorhexidine Rinse 15 ML MOUTHWASH MM SCH ×2 (07:56→20:22)
[2021-06-05] MEDS: Insulin DETEMIR 100 UNIT/ML X5UNITS SUBQ SCH ×2 (07:56→20:32)
[2021-06-05] MEDS: Furosemide 40 MG/4 ML VIAL IVP SCH ×2 (07:56→20:24)
[2021-06-05] MEDS: Pantoprazole 40 MG VIAL IVP SCH (07:57)
[2021-06-05] MEDS: Nystatin POWDER 30 GM BOTTLE TP SCH ×2 (07:57→21:06)
[2021-06-05] MEDS: valACYclovir 500 MG TABLET GTUBE SCH ×2 (07:58→20:24)
[2021-06-05] MEDS: OXcarbazepine 150 MG TABLET PO SCH ×2 (08:12→20:24)
[2021-06-05] MEDS: Budesonide/Formoterol 160/4.5 1 PUFF INH IH SCH ×2 (09:49→21:52)
[2021-06-05] MEDS: Docusate Oral Soln 100 MG/10 ML UDC PO SCH (20:23)
[2021-06-06] MEDS: Dexmedetomidine HCl 400 MCG/100 ML MLS IVC SCH ×5 (01:04→23:21)
[2021-06-06] MEDS: Ipratropium/Albuterol Neb 3 ML IH SCH ×4 (03:36→21:53)
[2021-06-06 04:13] LABS: ABG Base Excess 9 mEq/L (-2 to 3); ABG HCO3 39 mEq/L (21-27); ABG Oxygen Saturation 91 % (95-98); ABG PCO2 66 mmHg (35-45); ABG PH 7.37 pH Units (7.32-7.45); ABG PO2 66 mmHg (85-104); ABG TCO2 41 mEq/L (20-26); Blood Gas VT 400 cc
[2021-06-06] MEDS: Insulin LISPRO 300 UNITS/3 ML VIAL SUBQ SCH ×6 (04:28→23:24)
[2021-06-06] MEDS: Artificial Tears SOLN 15 ML BOTTLE BOTH EYES SCH ×6 (04:28→23:24)
[2021-06-06] MEDS: Cefepime HCl 2,000 MG in Water for inj. (sterile) 20 ML IVP SCH ×3 (04:29→19:40)
[2021-06-06 04:58] LABS: Basophils # 0.1 K/mcL (0.0-0.2); Basophils % 0.8 %; Eosinophils % 0.1 %; Hematocrit 52.9 % (35.3-44.9); Hemoglobin 16.1 g/dL (11.5-15.4); Immature Granulocytes % 4.8 % (0-4); Lymphocytes # 0.9 K/mcL (0.6-4.6); Lymphocytes % 5.9 %; Mean Corpuscular HGB Conc 30.4 g/dL (31.6-35.5); Mean Corpuscular Hemoglobin 28.6 pg (28.0-33.3); Mean Platelet Volume 10.9 fL (9.4-12.4); Monocytes % 6.3 %; Neutrophils # 13.1 K/mcL (1.6-8.9); Platelet Count 333 K/mcL (140-400); Red Blood Count 5.63 M/mcL (3.82-4.97); Red Cell Distribution Width 14.7 % (11.5-14.5); Segmented Neutrophils % 82.1 %; White Blood Count 15.9 K/mcL (4.3-11.1)
[2021-06-06 05:15] LABS: BUN/Creatinine Ratio 58 (6-26); Blood Urea Nitrogen 51 mg/dL (6-20); Calcium 10.1 mg/dL (8.6-10.3); Carbon Dioxide 34 mEq/L (23-29); Chloride 91 mEq/L (98-107); Glucose 306 mg/dL (70-105); Osmolality,Calculated 305 (280-300); Potassium 5.1 mEq/L (3.5-5.1); Sodium 135 mEq/L (136-145); eGFR For African Americans > 60 (> 60); eGFR For Non-African Americans > 60 (> 60)
[2021-06-06] MEDS: Doxycycline 100 MG in 0.9 % Sodium Chloride Mini Bag 100 ML IVPB SCH ×2 (05:21→16:42)
[2021-06-06] MEDS: FentaNYL (PF) 2,500 MCG/50 ML IV.SOLN IVC SCH ×2 (05:21→18:00)
[2021-06-06] MEDS: Heparin 25,000UNIT/250ML 1/2NS 25,000 UNIT/250 ML IV.SOLN IVC SCH ×2 (06:28→16:44)
[2021-06-06] MEDS: Chlorhexidine Rinse 15 ML MOUTHWASH MM SCH ×2 (08:36→19:59)
[2021-06-06] MEDS: Furosemide 40 MG/4 ML VIAL IVP SCH ×2 (08:36→19:59)
[2021-06-06] MEDS: methylPREDNISolone 125 MG/2 ML VIAL IVP SCH ×4 (08:37→23:29)
[2021-06-06] MEDS: Docusate Oral Soln 100 MG/10 ML UDC PO SCH ×2 (08:38→19:59)
[2021-06-06] MEDS: Pantoprazole 40 MG VIAL IVP SCH (08:38)
[2021-06-06] MEDS: OXcarbazepine 150 MG TABLET PO SCH ×2 (08:39→19:59)
[2021-06-06] MEDS: Sucralfate 1 GM TABLET PO SCH ×4 (08:39→20:03)
[2021-06-06] MEDS: valACYclovir 500 MG TABLET GTUBE SCH ×2 (08:39→19:58)
[2021-06-06] MEDS: Nystatin POWDER 30 GM BOTTLE TP SCH ×2 (08:43→19:58)
[2021-06-06] MEDS: Insulin DETEMIR 100 UNIT/ML X5UNITS SUBQ SCH ×3 (09:40→20:03)
[2021-06-06] MEDS: Budesonide/Formoterol 160/4.5 1 PUFF INH IH SCH ×2 (10:07→21:53)
[2021-06-07] MEDS: Heparin 25,000UNIT/250ML 1/2NS 25,000 UNIT/250 ML IV.SOLN IVC SCH ×3 (01:23→20:29)
[2021-06-07] MEDS: Ipratropium/Albuterol Neb 3 ML IH SCH ×4 (03:23→21:31)
[2021-06-07] MEDS: Cefepime HCl 2,000 MG in Water for inj. (sterile) 20 ML IVP SCH ×3 (03:43→20:25)
[2021-06-07] MEDS: Artificial Tears SOLN 15 ML BOTTLE BOTH EYES SCH ×5 (03:43→20:25)
[2021-06-07] MEDS: Insulin LISPRO 300 UNITS/3 ML VIAL SUBQ SCH ×5 (03:44→20:26)
[2021-06-07 04:18] LABS: Basophils % 0.2 %; Eosinophils % 0.2 %; Hematocrit 53.2 % (35.3-44.9); Hemoglobin 16.4 g/dL (11.5-15.4); Immature Granulocytes % 6.4 % (0-4); Lymphocytes # 1.2 K/mcL (0.6-4.6); Lymphocytes % 6.6 %; Mean Corpuscular HGB Conc 30.8 g/dL (31.6-35.5); Mean Corpuscular Hemoglobin 28.7 pg (28.0-33.3); Mean Corpuscular Volume 93.2 fL (83.0-100.0); Mean Platelet Volume 10.8 fL (9.4-12.4); Monocytes % 5.6 %; Neutrophils # 15.1 K/mcL (1.6-8.9); Platelet Count 301 K/mcL (140-400); Red Blood Count 5.71 M/mcL (3.82-4.97); Red Cell Distribution Width 14.6 % (11.5-14.5); White Blood Count 18.6 K/mcL (4.3-11.1)
[2021-06-07 04:30] LABS: ABG Base Excess 10 mEq/L (-2 to 3); ABG HCO3 39 mEq/L (21-27); ABG Oxygen Saturation 94 % (95-98); ABG PCO2 62 mmHg (35-45); ABG PH 7.41 pH Units (7.32-7.45); ABG PO2 72 mmHg (85-104); ABG TCO2 41 mEq/L (20-26); Blood Gas VT 400 cc
[2021-06-07 04:38] LABS: Alanine Aminotransferase 5 Units/L (7-52); Albumin 3.6 g/dL (3.5-5.7); Albumin/Globulin Ratio 0.9 (1.1-2.2); Alkaline Phosphatase 59 Units/L (34-104); Aspartate Amino Transferase 7 Units/L (13-39); BUN/Creatinine Ratio 61 (6-26); Bilirubin,Total 0.6 mg/dL (0.3-1.0); Blood Urea Nitrogen 60 mg/dL (6-20); Calcium 10.1 mg/dL (8.6-10.3); Carbon Dioxide 35 mEq/L (23-29); Chloride 92 mEq/L (98-107); Globulin 3.8 g/dL (2.4-3.5); Glucose 300 mg/dL (70-105); Osmolality,Calculated 312 (280-300); Sodium 137 mEq/L (136-145); Total Protein 7.4 g/dL (6.4-8.9); eGFR For African Americans > 60 (> 60); eGFR For Non-African Americans > 60 (> 60)
[2021-06-07 04:44] LABS: Reactive Lymphocytes Present (Not Present)
[2021-06-07 04:45] LABS: Platelet Estimate Normal (Normal); Poikilocytosis 1+ (Not Present)
[2021-06-07] MEDS: Dexmedetomidine HCl 400 MCG/100 ML MLS IVC SCH ×3 (05:07→22:16)
[2021-06-07] MEDS: FentaNYL (PF) 2,500 MCG/50 ML IV.SOLN IVC SCH ×2 (05:18→19:30)
[2021-06-07] MEDS: valACYclovir 500 MG TABLET GTUBE SCH ×2 (08:30→20:29)
[2021-06-07] MEDS: Docusate Oral Soln 100 MG/10 ML UDC PO SCH ×2 (08:30→20:29)
[2021-06-07] MEDS: Furosemide 40 MG/4 ML VIAL IVP SCH ×2 (08:30→20:32)
[2021-06-07] MEDS: Pantoprazole 40 MG VIAL IVP SCH (08:30)
[2021-06-07] MEDS: Chlorhexidine Rinse 15 ML MOUTHWASH MM SCH ×2 (08:30→20:24)
[2021-06-07] MEDS: Sucralfate 1 GM TABLET PO SCH ×4 (08:30→20:27)
[2021-06-07] MEDS: methylPREDNISolone 125 MG/2 ML VIAL IVP SCH ×2 (08:30→17:11)
[2021-06-07] MEDS: OXcarbazepine 150 MG TABLET PO SCH ×2 (08:31→20:27)
[2021-06-07] MEDS: Nystatin POWDER 30 GM BOTTLE TP SCH ×2 (08:32→20:27)
[2021-06-07] MEDS: Insulin DETEMIR 100 UNIT/ML X5UNITS SUBQ SCH ×2 (08:50→20:32)
[2021-06-07] MEDS: Budesonide/Formoterol 160/4.5 1 PUFF INH IH SCH ×2 (09:39→21:31)
[2021-06-08] MEDS: Insulin LISPRO 300 UNITS/3 ML VIAL SUBQ SCH ×6 (00:01→20:15)
[2021-06-08 02:34] LABS: Red Cell Distribution Width 14.6 % (11.5-14.5)
[2021-06-08 02:35] LABS: Hematocrit 53.4 % (35.3-44.9); Hemoglobin 16.3 g/dL (11.5-15.4); Mean Corpuscular HGB Conc 30.5 g/dL (31.6-35.5); Mean Corpuscular Hemoglobin 28.6 pg (28.0-33.3); Mean Corpuscular Volume 93.8 fL (83.0-100.0); Mean Platelet Volume 10.9 fL (9.4-12.4); Platelet Count 290 K/mcL (140-400); Red Blood Count 5.69 M/mcL (3.82-4.97); White Blood Count 27.6 K/mcL (4.3-11.1)
[2021-06-08 02:50] LABS: BUN/Creatinine Ratio 67 (6-26); Blood Urea Nitrogen 68 mg/dL (6-20); Calcium 10.2 mg/dL (8.6-10.3); Carbon Dioxide 36 mEq/L (23-29); Chloride 95 mEq/L (98-107); Glucose 225 mg/dL (70-105); Osmolality,Calculated 313 (280-300); Potassium 4.4 mEq/L (3.5-5.1); Sodium 138 mEq/L (136-145); eGFR For African Americans > 60 (> 60); eGFR For Non-African Americans > 60 (> 60)
[2021-06-08] MEDS: Ipratropium/Albuterol Neb 3 ML IH SCH ×4 (03:33→21:26)
[2021-06-08 03:45] LABS: Lymphocytes # 1.4 K/mcL (0.6-4.6); Monocytes # 2.2 K/mcL (0.0-1.3); Neutrophils # 23.2 K/mcL (1.6-8.9); Platelet Estimate Normal (Normal)
[2021-06-08 04:33] LABS: ABG Base Excess 9 mEq/L (-2 to 3); ABG HCO3 38 mEq/L (21-27); ABG Oxygen Saturation 86 % (95-98); ABG PCO2 67 mmHg (35-45); ABG PH 7.37 pH Units (7.32-7.45); ABG PO2 56 mmHg (85-104); ABG TCO2 40 mEq/L (20-26); Blood Gas Modality AF; Blood Gas VT 400 cc
[2021-06-08] MEDS: Artificial Tears SOLN 15 ML BOTTLE BOTH EYES SCH ×6 (04:35→20:15)
[2021-06-08] MEDS: Cefepime HCl 2,000 MG in Water for inj. (sterile) 20 ML IVP SCH ×3 (04:36→22:38)
[2021-06-08] MEDS: Heparin 25,000UNIT/250ML 1/2NS 25,000 UNIT/250 ML IV.SOLN IVC SCH ×2 (04:38→20:34)
[2021-06-08] MEDS: Dexmedetomidine HCl 400 MCG/100 ML MLS IVC SCH ×3 (04:40→22:32)
[2021-06-08] MEDS ORDERED: Perflutren Lipid Microsphere 1.3 ML in 0.9 % Sodium Chloride 8.7 ML IVP PRN (07:16)
[2021-06-08] MEDS: FentaNYL (PF) 2,500 MCG/50 ML IV.SOLN IVC SCH ×2 (07:26→19:35)
[2021-06-08] MEDS ORDERED: Isovue-370 500 ML BOTTLE IVP ONE (08:05)
[2021-06-08] MEDS: Budesonide/Formoterol 160/4.5 1 PUFF INH IH SCH ×2 (09:53→21:26)
[2021-06-08] MEDS: methylPREDNISolone 125 MG/2 ML VIAL IVP SCH ×3 (10:09→14:55)
[2021-06-08] MEDS: Docusate Oral Soln 100 MG/10 ML UDC PO SCH ×2 (10:09→20:09)
[2021-06-08] MEDS: Nystatin POWDER 30 GM BOTTLE TP SCH ×2 (10:09→20:18)
[2021-06-08] MEDS: OXcarbazepine 150 MG TABLET PO SCH ×2 (10:10→20:19)
[2021-06-08] MEDS: Pantoprazole 40 MG VIAL IVP SCH (10:10)
[2021-06-08] MEDS: Sucralfate 1 GM TABLET PO SCH ×4 (10:10→20:11)
[2021-06-08] MEDS: Chlorhexidine Rinse 15 ML MOUTHWASH MM SCH ×2 (10:10→20:09)
[2021-06-08] MEDS: Furosemide 40 MG/4 ML VIAL IVP SCH ×2 (10:11→20:18)
[2021-06-08] MEDS: valACYclovir 500 MG TABLET GTUBE SCH ×2 (10:11→20:11)
[2021-06-08] MEDS: Insulin DETEMIR 100 UNIT/ML X5UNITS SUBQ SCH ×2 (10:14→20:09)
[2021-06-08] MEDS ORDERED: Lidocaine -MPF 1% 5 ML AMPUL INFILT ONE (15:35)
[2021-06-08] MEDS: *HR* Heparin 5,000 UNIT/ML VIAL IVP PRN (20:44)
[2021-06-09] MEDS: Insulin LISPRO 300 UNITS/3 ML VIAL SUBQ SCH ×7 (01:58→23:56)
[2021-06-09] MEDS: Artificial Tears SOLN 15 ML BOTTLE BOTH EYES SCH ×7 (01:58→23:56)
[2021-06-09] MEDS: methylPREDNISolone 125 MG/2 ML VIAL IVP SCH ×2 (02:02→08:22)
[2021-06-09 03:25] LABS: ABG Base Excess 8 mEq/L (-2 to 3); ABG HCO3 39 mEq/L (21-27); ABG Oxygen Saturation 91 % (95-98); ABG PCO2 78 mmHg (35-45); ABG PH 7.31 pH Units (7.32-7.45); ABG PO2 69 mmHg (85-104); ABG TCO2 42 mEq/L (20-26); Blood Gas VT 400 cc
[2021-06-09] MEDS: Cefepime HCl 2,000 MG in Water for inj. (sterile) 20 ML IVP SCH (03:45)
[2021-06-09 04:13] LABS: Hematocrit 52.7 % (35.3-44.9); Hemoglobin 15.5 g/dL (11.5-15.4); Mean Corpuscular HGB Conc 29.4 g/dL (31.6-35.5); Mean Corpuscular Hemoglobin 27.6 pg (28.0-33.3); Mean Corpuscular Volume 93.9 fL (83.0-100.0); Mean Platelet Volume 11.5 fL (9.4-12.4); Platelet Count 276 K/mcL (140-400); Red Blood Count 5.61 M/mcL (3.82-4.97); Red Cell Distribution Width 14.8 % (11.5-14.5)
[2021-06-09] MEDS: Ipratropium/Albuterol Neb 3 ML IH SCH ×4 (04:13→22:22)
[2021-06-09 04:27] LABS: Calcium 10.1 mg/dL (8.6-10.3); Magnesium 2.3 mg/dL (1.6-2.6); Phosphorous 5.2 mg/dL (2.7-4.5); Potassium 4.4 mEq/L (3.5-5.1)
[2021-06-09 05:02] LABS: Eosinophils # 0.5 K/mcL (0.0-0.6); Hypochromasia Present (Not Present); Lymphocytes # 2.3 K/mcL (0.6-4.6); Monocytes # 1.4 K/mcL (0.0-1.3); Neutrophils # 18.4 K/mcL (1.6-8.9)
[2021-06-09 05:03] LABS: Platelet Estimate Normal (Normal); Toxic Granulation Present (Not Present)
[2021-06-09] MEDS: FentaNYL (PF) 2,500 MCG/50 ML IV.SOLN IVC SCH (05:42)
[2021-06-09] MEDS: Dexmedetomidine HCl 400 MCG/100 ML MLS IVC SCH ×2 (07:00→22:17)
[2021-06-09] MEDS: Heparin 25,000UNIT/250ML 1/2NS 25,000 UNIT/250 ML IV.SOLN IVC SCH ×2 (08:00→19:43)
[2021-06-09] MEDS: Chlorhexidine Rinse 15 ML MOUTHWASH MM SCH ×2 (08:05→20:06)
[2021-06-09] MEDS: Sucralfate 1 GM TABLET PO SCH ×4 (08:05→20:10)
[2021-06-09] MEDS: Pantoprazole 40 MG VIAL IVP SCH (08:06)
[2021-06-09] MEDS: OXcarbazepine 150 MG TABLET PO SCH ×2 (08:06→20:07)
[2021-06-09] MEDS: Insulin DETEMIR 100 UNIT/ML X5UNITS SUBQ SCH ×2 (08:25→20:06)
[2021-06-09] MEDS: Docusate Oral Soln 100 MG/10 ML UDC PO SCH ×2 (08:26→20:06)
[2021-06-09] MEDS: Nystatin POWDER 30 GM BOTTLE TP SCH ×2 (08:50→20:07)
[2021-06-09] MEDS: Budesonide/Formoterol 160/4.5 1 PUFF INH IH SCH ×2 (10:08→22:21)
[2021-06-09] MEDS: valACYclovir 500 MG TABLET GTUBE SCH ×2 (12:43→20:07)
[2021-06-09] MEDS: MethylPREDNISolone 40 MG/ML VIAL IVP SCH (17:53)
[2021-06-09] MEDS: Vancomycin 500 MG in 0.9 % Sodium Chloride Mini Bag 100 ML IVPB SCH (17:53)
[2021-06-10] MEDS: Ipratropium/Albuterol Neb 3 ML IH SCH ×4 (03:19→21:10)
[2021-06-10] MEDS: Artificial Tears SOLN 15 ML BOTTLE BOTH EYES SCH ×6 (04:00→23:26)
[2021-06-10] MEDS: Insulin LISPRO 300 UNITS/3 ML VIAL SUBQ SCH ×6 (04:00→23:26)
[2021-06-10 04:02] LABS: Basophils % 0.1 %; Eosinophils % 0.1 %; Hematocrit 51.1 % (35.3-44.9); Hemoglobin 15.4 g/dL (11.5-15.4); Immature Granulocytes % 4.8 % (0-4); Lymphocytes # 1.3 K/mcL (0.6-4.6); Lymphocytes % 4.7 %; Mean Corpuscular HGB Conc 30.1 g/dL (31.6-35.5); Mean Corpuscular Hemoglobin 28.5 pg (28.0-33.3); Mean Corpuscular Volume 94.5 fL (83.0-100.0); Mean Platelet Volume 11.6 fL (9.4-12.4); Monocytes # 3.5 K/mcL (0.0-1.3); Monocytes % 12.8 %; Neutrophils # 20.9 K/mcL (1.6-8.9); Platelet Count 293 K/mcL (140-400); Red Blood Count 5.41 M/mcL (3.82-4.97); Red Cell Distribution Width 14.7 % (11.5-14.5); Segmented Neutrophils % 77.5 %
[2021-06-10 04:17] LABS: ABG Base Excess 6 mEq/L (-2 to 3); ABG HCO3 34 mEq/L (21-27); ABG Oxygen Saturation 92 % (95-98); ABG PCO2 61 mmHg (35-45); ABG PH 7.36 pH Units (7.32-7.45); ABG PO2 69 mmHg (85-104); ABG TCO2 36 mEq/L (20-26); Blood Gas VT 400 cc
[2021-06-10 04:20] LABS: Albumin 3.1 g/dL (3.5-5.7); Albumin/Globulin Ratio 0.8 (1.1-2.2); Bilirubin,Total 0.6 mg/dL (0.3-1.0); Calcium 10.3 mg/dL (8.6-10.3); Magnesium 2.4 mg/dL (1.6-2.6); Phosphorous 5.2 mg/dL (2.7-4.5); Potassium 4.3 mEq/L (3.5-5.1); Total Protein 7.1 g/dL (6.4-8.9)
[2021-06-10] MEDS: Vancomycin 500 MG in 0.9 % Sodium Chloride Mini Bag 100 ML IVPB SCH (06:26)
[2021-06-10] MEDS: MethylPREDNISolone 40 MG/ML VIAL IVP SCH ×2 (06:28→17:24)
[2021-06-10] MEDS: Dexmedetomidine HCl 400 MCG/100 ML MLS IVC SCH ×3 (07:20→23:01)
[2021-06-10] MEDS: Heparin 25,000UNIT/250ML 1/2NS 25,000 UNIT/250 ML IV.SOLN IVC SCH ×2 (07:20→17:59)
[2021-06-10] MEDS: Docusate Oral Soln 100 MG/10 ML UDC PO SCH ×2 (08:35→20:25)
[2021-06-10] MEDS: Pantoprazole 40 MG VIAL IVP SCH (08:35)
[2021-06-10] MEDS: OXcarbazepine 150 MG TABLET PO SCH ×2 (08:35→20:25)
[2021-06-10] MEDS: valACYclovir 500 MG TABLET GTUBE SCH ×2 (08:35→20:27)
[2021-06-10] MEDS: Nystatin POWDER 30 GM BOTTLE TP SCH ×2 (08:36→20:30)
[2021-06-10] MEDS: Chlorhexidine Rinse 15 ML MOUTHWASH MM SCH ×2 (08:36→20:22)
[2021-06-10] MEDS: Sucralfate 1 GM TABLET PO SCH (08:41)
[2021-06-10] MEDS: FentaNYL (PF) 2,500 MCG/50 ML IV.SOLN IVC SCH ×2 (09:03→23:01)
[2021-06-10] MEDS: Insulin DETEMIR 100 UNIT/ML X5UNITS SUBQ SCH ×2 (09:07→20:30)
[2021-06-10] MEDS: Cefepime HCl 2,000 MG in Water for inj. (sterile) 20 ML IVP SCH ×2 (10:15→17:23)
[2021-06-10] MEDS ORDERED: *HR* Rocuronium Bromide 50 MG/5 ML VIAL IVP ONE (10:15)
[2021-06-10] MEDS: Budesonide/Formoterol 160/4.5 1 PUFF INH IH SCH ×2 (10:57→21:10)
[2021-06-10 11:48] LABS: Amorphous Sediment,Urine Few per hpf (None-Few); Bilirubin,Urine Negative (Negative); Blood,Urine Trace (Negative); Clarity,Urine Ex.Turbid (Clear); Color,Urine Yellow (Yellow); Glucose,Urine (UA) 30 mg/dL (Normal); Ketones,Urine Negative (Negative); Leukocyte Esterase,Urine Negative (Negative); Mucus,Urine Few per lpf (None-Few); Nitrite,Urine Negative (Negative); PH,Urine 5.5 pH Units (5.0-8.0); Protein,Urine 100 mg/dL (Neg-Trace); RBC,Urine 15-30 per hpf (0-3); Specific Gravity,Urine > 1.030 (1.010-1.025); Urobilinogen,Urine Normal (Normal); WBC,Urine 15-30 per hpf (0-3)
[2021-06-10] MEDS: MetroNIDAZOLE 500 MG/100 ML 500 MG/100 ML BAG IVPB SCH ×2 (12:24→20:24)
[2021-06-11] MEDS: Cefepime HCl 2,000 MG in Water for inj. (sterile) 20 ML IVP SCH (01:47)
[2021-06-11] MEDS: Dexmedetomidine HCl 400 MCG/100 ML MLS IVC SCH ×4 (02:25→17:12)
[2021-06-11] MEDS: Artificial Tears SOLN 15 ML BOTTLE BOTH EYES SCH ×4 (03:44→16:45)
[2021-06-11] MEDS: MetroNIDAZOLE 500 MG/100 ML 500 MG/100 ML BAG IVPB SCH ×2 (03:45→10:59)
[2021-06-11] MEDS: Insulin LISPRO 300 UNITS/3 ML VIAL SUBQ SCH ×3 (03:45→12:04)
[2021-06-11] MEDS: Ipratropium/Albuterol Neb 3 ML IH SCH ×3 (03:48→15:03)
[2021-06-11 03:58] LABS: Basophils # 0.1 K/mcL (0.0-0.2); Basophils % 0.7 %; Hematocrit 45.6 % (35.3-44.9); Hemoglobin 14.1 g/dL (11.5-15.4); Immature Granulocytes % 4.9 % (0-4); Lymphocytes # 1.4 K/mcL (0.6-4.6); Lymphocytes % 6.6 %; Mean Corpuscular HGB Conc 30.9 g/dL (31.6-35.5); Mean Corpuscular Hemoglobin 28.4 pg (28.0-33.3); Mean Corpuscular Volume 91.8 fL (83.0-100.0); Mean Platelet Volume 11.9 fL (9.4-12.4); Monocytes # 1.9 K/mcL (0.0-1.3); Neutrophils # 16.4 K/mcL (1.6-8.9); Platelet Count 279 K/mcL (140-400); Red Blood Count 4.97 M/mcL (3.82-4.97); Red Cell Distribution Width 15.2 % (11.5-14.5); Segmented Neutrophils % 78.8 %; White Blood Count 20.8 K/mcL (4.3-11.1)
[2021-06-11] MEDS: Heparin 25,000UNIT/250ML 1/2NS 25,000 UNIT/250 ML IV.SOLN IVC SCH ×2 (03:59→14:55)
[2021-06-11 04:29] LABS: ABG Base Excess 1 mEq/L (-2 to 3); ABG HCO3 26 mEq/L (21-27); ABG Oxygen Saturation 94 % (95-98); ABG PCO2 40 mmHg (35-45); ABG PH 7.41 pH Units (7.32-7.45); ABG PO2 72 mmHg (85-104); ABG TCO2 27 mEq/L (20-26); Blood Gas VT 500 cc
[2021-06-11 04:46] LABS: Platelet Estimate Normal (Normal); Reactive Lymphocytes Present (Not Present)
[2021-06-11] MEDS: FentaNYL (PF) 2,500 MCG/50 ML IV.SOLN IVC SCH ×2 (04:48→17:11)
[2021-06-11 05:40] LABS: Albumin 2.9 g/dL (3.5-5.7); Albumin/Globulin Ratio 0.7 (1.1-2.2); Bilirubin,Total 0.5 mg/dL (0.3-1.0); Calcium 9.6 mg/dL (8.6-10.3); Globulin 4.2 g/dL (2.4-3.5); Magnesium 2.3 mg/dL (1.6-2.6); Phosphorous 6.3 mg/dL (2.7-4.5); Potassium 5.4 mEq/L (3.5-5.1); Total Protein 7.1 g/dL (6.4-8.9)
[2021-06-11] MEDS: MethylPREDNISolone 40 MG/ML VIAL IVP SCH (05:43)
[2021-06-11] MEDS ORDERED: Vancomycin 500 MG in 0.9 % Sodium Chloride Mini Bag 100 ML IVPB SCH (06:00)
[2021-06-11] MEDS: Budesonide/Formoterol 160/4.5 1 PUFF INH IH SCH (06:55)
[2021-06-11] MEDS: Docusate Oral Soln 100 MG/10 ML UDC PO SCH (08:16)
[2021-06-11] MEDS: valACYclovir 500 MG TABLET GTUBE SCH (08:17)
[2021-06-11] MEDS: Pantoprazole 40 MG VIAL IVP SCH (08:17)
[2021-06-11] MEDS: OXcarbazepine 150 MG TABLET PO SCH (08:19)
[2021-06-11] MEDS: Nystatin POWDER 30 GM BOTTLE TP SCH (08:22)
[2021-06-11] MEDS: Chlorhexidine Rinse 15 ML MOUTHWASH MM SCH (08:22)
[2021-06-11] MEDS: Insulin DETEMIR 100 UNIT/ML X5UNITS SUBQ SCH (08:43)
[2021-06-11 12:28] VITALS: TEMP 98.8
[2021-06-11] MEDS ORDERED: Insulin LISPRO 300 UNITS/3 ML VIAL SUBQ SCH (13:48)
[2021-06-11 14:39] LABS: Protein/Creatinine Ratio,Urine 2.43 mg/mg (0.00-0.20); Sodium, Urine 17.9 mEq/L
[2021-06-11] MEDS ORDERED: 0.9 % Sodium Chloride 500 ML ONE (14:54)
[2021-06-11] MEDS ORDERED: *HR* Heparin 5,000 UNIT/ML VIAL ONE (15:21)
[2021-06-11 16:27] VITALS: BP 99/62
[2021-06-11 17:06] VITALS: O2SAT 90
[2021-06-11 17:15] VITALS: PULSE 75
[2021-06-12] MEDS ORDERED: Cefepime HCl 2,000 MG in Water for inj. (sterile) 20 ML IVP SCH (02:00)
== END 2021-06-11 18:06 | disposition short-term general hospital (02) | DRG 130 ==
LOC: 2NNU → ICNU 05-31 06:05
PROVIDERS: ADMIT Internal Medicine; ATTEND Internal Medicine